=== PATIENT | female | born 1945 | race Caucasian/White ===

== ENCOUNTER 2017-06-05 00:59 | Emergency (ER) | payer OTHER ==
[~2017-06-05] VITALS: Ht 154.9 cm; Wt 52.2 kg
[~2017-06-05 00:59] MED LIST: ANTIVERT25 M1 PO; METFORMIN HYDRO25 GM
[2017-06-05] MEDS ORDERED: SIMVASTATIN5 MG PO (01:16)
== END 2017-06-05 14:49 | disposition home or self-care (01) ==
LOC: ER 00:59
DX: J06.9 Acute upper respiratory infection, unspecified (principal); S90.32XA Contusion of left foot, initial encounter; K52.9 Noninfective gastroenteritis and colitis, unspecified; B34.9 Viral infection, unspecified; W01.198A Fall on same level from slipping, tripping and stumbling with subsequent striking against other object, initial encounter; Y93.E1 Activity, personal bathing and showering; Y92.012 Bathroom of single-family (private) house as the place of occurrence of the external cause; Y99.8 Other external cause status

== ENCOUNTER 2017-09-17 09:55 | Outpatient (CLI) | payer OTHER ==
[~2017-09-17 09:55] MED LIST changes: +SIMVASTATIN5 MG PO
== END 2017-09-17 10:50 | disposition home or self-care (01) ==
LOC: RAD 501 09:55
DX: M54.2 Cervicalgia (principal)